=== PATIENT | male | born 1955 | race Caucasian/White ===

== ENCOUNTER → 2017-02-21 | Outpatient (CLI) | payer BC | END | disposition home or self-care (01) | LOC: GMAH 12:19 | PROVIDERS: ATTEND Family Medicine | DX: M25.579 Pain in unspecified ankle and joints of unspecified foot (principal) ==

== ENCOUNTER → 2017-07-31 | Outpatient (CLI) | payer BC ==
--- NOTE | 2017-08-04 08:29 | MRI ---
EXAM DESCRIPTION: MRI right knee CLINICAL HISTORY: Right knee pain and swelling. COMPARISON: None. TECHNIQUE: Multiplanar, multisequence MR images of the right knee FINDINGS: Severe medial femorotibial osteoarthritis with complete cartilage loss along both sides the joint, flattened bony remodeling and prominent joint line osteophytes. Multiple tiny subchondral cysts and diffuse marrow edema along both sides the joint. Chronic macerated tear of the entire body and posterior horn medial meniscus. Focal triangular-shaped ossification posteriorly. This is either an intra-articular body or possibly ossification of a portion of the meniscus 18 x 10 x 13 mm axial image 14, sagittal image 7 No lateral meniscal tear. Grade 4 chondrosis over the central weightbearing femoral condyle with subchondral cystic change and a broad region of edema over about 1.5 cm. Grade 3 tibial chondrosis. Minimal patellar chondrosis. Full-thickness chondral fissuring within an area of chondrosis superior to mid medial trochlea over about 1.8 x 1.5 cm. Remote complete ACL tear. PCL, MCL and fibular collateral ligaments are intact Biceps femoris, popliteus and iliotibial band tendons are intact. Patellar and quadriceps tendons and tendons of the posterior medial knee are intact. Large joint effusion with degenerative synovitis. Large tense Bakers cyst, partially decompressed with edema extending inferiorly. Measurements approximately 9.8 x 4 x 4.4 cm. IMPRESSION: Chronic macerated degenerative tear involving the entire posterior horn and body medial meniscus with large loose body/meniscal ossification posterior medial Severe medial femorotibial osteoarthritis. Remote complete ACL tear Large joint effusion and Hernandez cyst Electronically signed by: Bay Diaz MD 08/04/2017 8:28 AM CDT
== END ==
LOC: MRI 13:54
PROVIDERS: ATTEND Family Medicine
DX: S83.206A Unspecified tear of unspecified meniscus, current injury, right knee, initial encounter (principal); S83.511A Sprain of anterior cruciate ligament of right knee, initial encounter; M71.21 Synovial cyst of popliteal space [Baker], right knee

== ENCOUNTER → 2017-12-10 | Outpatient (CLI) | payer BC ==
--- NOTE | 2017-12-10 11:53 | US ---
EXAM DESCRIPTION: Venous,Lower Extremity RT CLINICAL HISTORY: PN IN UNSPECIFIED LIMB COMPARISON: None Available. TECHNIQUE: Right lower extremity venous duplex FINDINGS: There is no DVT identified. There is normal color flow observed with good flow augmentation. All deep veins compress normally. Incidental note is made of a complex Hernandez's cyst. IMPRESSION: Negative for DVT Incidental note is made of a complex Hernandez's cyst. Electronically signed by: Philomena Royal MD 12/10/2017 11:52 AM CDT
== END ==
LOC: US 11:16
PROVIDERS: ATTEND Family Medicine
DX: M71.21 Synovial cyst of popliteal space [Baker], right knee (principal); M79.609 Pain in unspecified limb